=== PATIENT | female | born 1965 | race Caucasian/White ===

== ENCOUNTER 2017-02-05 21:22 | Observation (INO) ==
[2017-02-05] MEDS ORDERED: SALINE FLUSH 10ml SYRINGE IVF PRN (21:27)
[2017-02-05] MEDS ORDERED: DiltiaZEM 25 MG/5 ML INJECTION IVP ONE ×2 (21:28→22:07)
--- OUTSIDE RECORDS SUMMARY | 2017-02-05 21:34 | External Medical Summary ---
:1965 Author Organization [employer] Care Team Providers Name Role Phone Jaqueline Teague Provider Role Unavailable Allergies No Known Allergies Problems Problem Type Condition Code Onset Dates Condition Status Problem Frequency of micturition R35.0 Active Assessment Essential (primary) hypertension I10 Active Problem Essential (primary) hypertension I10 Active Medications Medication Code Code Instructions Start End Status Dosage System Date Date BuPROPion HCl (SR) NDC 50475-67 150 MG Orally 1 tablet 15-01 daily Phentermine HCl NDC 57278-75 37.5 MG Orally 1 tablet 17-01 Once a day Cipro NDC 99060-15 500 MG Orally May 26, Jun 02, 1 tablet 54-01 every 12 hrs 2015 2015 [place] [address]-71 25 MG Orally 1 tablet 56-01 Once a day Procedures Procedure Coding System Code Date COMPLETE CBC W/AUTO DIFF WBC CPT-4 99277 May 28, 2015 LIPID PANEL CPT-4 84485 May 28, 2015 COMPREHENSIVE METABOLIC PANEL CPT-4 92432 May 28, 2015 TSH CPT-4 46701 May 28, 2015 Results No Known Results Summary Purpose eClinicalWorks Submission
--- OUTSIDE RECORDS SUMMARY | 2017-02-05 21:34 | External Medical Summary | Referral Summary ---
:1965 Author Organization [facility] Address [address] [place] [address] Care Team Providers Name Role Phone Ricardo Guerrero Primary Care Physician Encounter VC Date(s): 12/09/15 - 12/09/15 [facility] [address] [place] [address]- [place] Discharge Diagnosis: Carpal tunnel syndrome Discharge Diagnosis: Fibromyalgia Discharge Diagnosis: Rheumatoid factor positive Discharge Disposition: 01-Home or Self Care Attending Physician: Tonia Jensen MD Admitting Physician: Tonia Jensen MD Referring Physician: India Romano PA-C Vital Signs Most recent to oldest [Reference Range]: 1 Temperature Oral [35.8-37.3 degC] 36.9 degC (12/09/15 9:04 AM) Peripheral Pulse Rate [60-100 bpm] 83 bpm (12/09/15 9:04 AM) Respiratory Rate [14-20 br/min] 16 br/min (12/09/15 9:04 AM) Blood Pressure [90-140/60-90 mmHg] 140/85 mmHg (12/09/15 9:04 AM) Problem List Condition Effective Dates Status Health Status Informant Carpal tunnel syndrome(Confirmed) Active Fibromyalgia(Confirmed) Active Rheumatoid factor positive(Confirmed) Active Allergies, Adverse Reactions, Alerts No Known Medication Allergies Medications buPROPion 150 mg/12 hours (SR) oral tablet, extended release 150 mg 1 tabs, Oral, BID, # 180 tabs, 0 Refill(s) Start Date: 12/09/15 Status: Orderedcetirizine 10 mg oral tablet 10 mg 1 tabs, Oral, Daily, # 30 tabs, 0 Refill(s) Start Date: 12/09/15 Status: Orderedflecainide 50 mg oral tablet 50 mg 1 tabs, Oral, q12hr, # 180 tabs, 0 Refill(s) Start Date: 12/09/15 Status: Orderedhydrochlorothiazide 25 mg oral tablet 25 mg 1 tabs, Oral, Daily, # 90 tabs, 0 Refill(s) Start Date: 12/09/15 Status: OrderedPradaxa 150 mg oral capsule 150 mg 1 caps, Oral, BID, # 60 caps, 0 Refill(s) Start Date: 12/09/15 Status: Ordered Results No data available for this section Immunizations No data available for this section Procedures No data available for this section Social History Social History Type Response Smoking Status Never smoker Assessment and Plan Extracted from: Title: Office Visit Note Author: Tonia Jensen MD Date: 12/09/15 Assessment/Plan 1.Rheumatoid factor positive Nonpathological Ordered: Office Visit Level 4 New 96157 2.Fibromyalgia FIBROMYALGIA TREATMENT SUGGESTIONS EXERCISE A daily program is a must. Gradually increase every 1-2-3 weeks from present tolerance, maximum 10% increments. Endpoint 3 miles per day. If setback or illness, restart program 2-3 steps below level at interruption. RX Add medicines one group at a time as tolerated and helpful. Increase slowly, effect usually takes 2-6 weeks per step. TRICYCLICS Take 2-4 hours before bedtime, begin with either group, then add the other when stable. Amitriptyline Nortriptyline Doxepin - Begin with 10 mg., increase doses weekly by 10 mg to 30-50 mg. Trazodone - Gradually increase from 12.5 mg. to max 75 mg. Cyclobenzaprine - Begin with 5-10 mg, increase dose weekly by 5-10 mg, max dose 20 mg. GABAPENTIN Begin with 100 mg at bedtime; increase weekly 100 mg to 400-600 mg. Then begin adding 100 mg, tid with meals, continue increase as tolerated to 800 mg qid. TIZANIDINE Begin with 1 mg at bedtime, gradually increase every 3-7 days through 2, 4, 6 with 8 mg at bedtime. If wake in middle of night, may add a half dose then. When stable begin adding 1 mg tid APART from meals, continue increase as tolerated and helpful to max 24 mg every day. TRAMADOL Begin with 25 mg at bedtime. In 1-2 weeks increase to 100 mg. Then gradually add daytime doses in 50 mg increments to max 300 mg every day. SSRI, etc. Any of the medications here may help. Presently I use mostly Lexapro and Effexor XR. Lowest dose for at least 2 weeks. May be better tolerated either AM or PM. LYRICA Give 2 or 3 times per day. Starting dose 100-150 mg per day. Titrate over 1-2 weeks to max 450 mg per day. Discontinue by titrating to off over 1 week. CYMBALTA Given once per day. Begin with 30 mg. Titrate in 30 mg increments every 1-2 weeks to maximum 120 mg per day. Do not tamper with capsule. SAVELLA Give 12.5 mg per day at start, titrating to maximum of 200 mg per day. Will require a taper if discontinued. Ordered: Office Visit Level 4 New 09351 3.Carpal tunnel syndrome Recommend pursuit ofstatusand cause Ordered: Office Visit Level 4 New 19653
--- OUTSIDE RECORDS SUMMARY | 2017-02-05 21:34 | External Medical Summary ---
:1965 Author Organization [facility] Address [address] [place], [place] [address] Phone [phone] Care Team Providers Name Role Phone Yuridia Pineda Unavailable Unavailable PROBLEMS Type Condition ICD9-CM Code HIX28-IV Code Onset Condition SNOMED Code Dates Status Problem Personal history Z86.718 Active 095821423 of other venous thrombosis and embolism Problem Chronic atrial I48.2 Active 530670807 fibrillation Problem Major depressive F33.1 Active 60541250 disorder, recurrent, moderate Problem Essential I10 Active 24937800 (primary) hypertension ALLERGIES Unknown Allergies SOCIAL HISTORY No smoking Hx information available PLAN OF CARE VITAL SIGNS MEDICATIONS Unknown Medications RESULTS No Results PROCEDURES No Known procedures IMMUNIZATIONS No Known Immunizations
--- OUTSIDE RECORDS SUMMARY | 2017-02-05 21:34 | External Medical Summary ---
:1965 Author Organization eClinicalWorks Care Team Providers Name Role Phone Jaqueline Teague Provider Role Unavailable Allergies, Adverse Reactions, Alerts Substance Reaction Event Type N.K.D.A. Info Not Available Non Drug Allergy Problems Problem Type Condition Code Onset Dates Condition Status Problem Frequency of micturition R35.0 Active Assessment Encounter for general adult medical Z00.00 Active examination without abnormal findings Problem Essential (primary) hypertension I10 Active Assessment Essential (primary) hypertension I10 Active Assessment Frequency of micturition R35.0 Active Medications Medication Code Code Instructions Start End Status Dosage System Date [place] BuPROP[place] ([place] [address]-47 150 MG Orally 1 tablet 15-01 daily Cipro NDC 69822-90 500 MG Orally May 26, Jun 02, 1 tablet 54-01 every 12 hrs 2015 2015 [place] [address]-20 37.5 MG Orally 1 tablet 17-01 [place] [address]-02 25 MG Orally 1 tablet 56-01 Once a day Procedures Procedure Coding System Code Date OFFICE VISIT, [facility] ATTENDANT-LOW COMPLEXITY (20 MIN.) CPT-4 04152 May 26, 2015 URINALYSIS, IN HOUSE CPT-4 98065 May 26, 2015 Vital Signs Date/Time: May 26, 2015 BMI 37.95 Index Height 69 in Weight 257 lbs Respiratory Rate 14 /min Blood Pressure Diastolic 84 mm Hg Blood Pressure Systolic 132 mm Hg Cardiac Monitoring Heart Rate 104 /min Oximetry 97 % Results No Known Results Summary Purpose eClinicalWorks Submission
--- OUTSIDE RECORDS SUMMARY | 2017-02-05 21:34 | External Medical Summary ---
:1965 Author Organization [facility] Address [address], [place] [address] Phone [phone] Care Team Providers Name Role Phone Yuridia Pineda Unavailable Unavailable PROBLEMS Type Condition ICD9-CM Code RPK54-EQ Code Onset Condition SNOMED Code Dates Status Problem Personal history Z86.718 Active 131983962 of other venous thrombosis and embolism Problem Chronic atrial I48.2 Active 518950139 fibrillation Problem Major depressive F33.1 Active 17005586 disorder, recurrent, moderate Problem Essential I10 Active 42212848 (primary) hypertension ALLERGIES Unknown Allergies SOCIAL HISTORY No smoking Hx information available PLAN OF CARE VITAL SIGNS MEDICATIONS Medication Instructions Dosage Frequency Start End Duration Status Date Date Hydrochlorothiazide 25 Orally Once a 1 tablet 24h 90 days Active MG day RESULTS No Results PROCEDURES No Known procedures IMMUNIZATIONS No Known Immunizations
--- OUTSIDE RECORDS SUMMARY | 2017-02-05 21:34 | External Medical Summary ---
:1965 Author Organization [facility] Address [address], [place] [address] Phone [phone] Care Team Providers Name Role Phone Yuridia Pineda Unavailable Unavailable PROBLEMS Type Condition ICD9-CM Code KRZ32-VT Code Onset Condition SNOMED Code Dates Status Problem Personal history Z86.718 Active 377500794 of other venous thrombosis and embolism Problem Chronic atrial I48.2 Active 128099416 fibrillation Problem Major depressive F33.1 Active 53179843 disorder, recurrent, moderate Problem Essential I10 Active 01695537 (primary) hypertension ALLERGIES Substance Reaction Event Type Date Status N.K.D.A. Unknown Non Drug Allergy Dec, Unknown SOCIAL HISTORY No smoking Hx information available PLAN OF CARE Activity Details Follow Up 2 Weeks, prn Reason:null VITAL SIGNS Height 68.5 in 2016-12-29 Weight 274lbs 6oz lbs 2016-12-29 BMI 41.11 kg/m2 2016-12-29 Heart Rate 75 /min 2016-12-29 Temperature 98.1 degrees Fahrenheit 2016-12-29 Blood pressure systolic 124 mm Hg 2016-12-29 Blood pressure diastolic 85 mm Hg 2016-12-29 MEDICATIONS Medication Instructions Dosage Frequency Start End Duration Status Date Date Pradaxa 150 MG Orally Twice a 1 capsule 12h Active day Claritin 10 MG Orally Once a 1 tablet 24h Active day BuPROPion HCl ER (XL) Orally Once a 1 tablet 24h Active 300 MG day in the morning Hydrochlorothiazide 25 Orally daily 1 tablet 24h Active MG Flecainide Acetate 50 Orally twice a 1 tablet Active mg day (bid) RESULTS No Results PROCEDURES Procedure Date Ordered Related Diagnosis Body Site Office Visit, New Pt., Level 3 Dec 29, 2016 IMMUNIZATIONS No Known Immunizations
--- NOTE | 2017-02-05 21:48 | Emergency Department Report ---
Cardiac General HPI - General Stated Complaint: afib Time Seen by Provider: 02/05/17 21:24 Source: patient Mode of arrival: ambulatory Limitations: no limitations - History of Present Illness HPI narrative: Several hours ago, the patient began having rapid pounding heart rate, silver to her atrial fibrillation past. Patient is in chronic recurrent atrial fibrillation, takes flecainide, and is on prophylaxis. However patient does occasionally have episodes of rapid ventricular response, similar to her presentation for new A. fib one year ago. Tonight the patient has taken her routine medications without relief, so she presented to the ER. Pt denies chest pain, shortness of breath, headaches or dizziness, neurologic symptoms, or GI symptoms. - Related Data Home Medications Medication Instructions Recorded Confirmed BuPROPion XL [Wellbutrin Xl] 150 mg PO BID #0 09/14/15 Cetirizine HCl [Zyrtec] 10 mg PO DAILY #0 09/14/15 HydrOXYzine [Atarax] 25 mg PO TID PRN #0 09/14/15 PredniSONE [Deltasone] 30 mg PO WB #0 09/14/15 hydroCHLOROthiazide 25 mg PO WB #0 09/14/15 [Hydrochlorothiazide] Previous Rx's Medication Instructions Recorded Dabigatran Etexilate Mesylate 150 mg PO BID #60 cap 09/16/15 [Pradaxa] Flecainide Acetate 50 mg PO Q12HR 30 Days #0 tab 09/16/15 Allergies Allergy/AdvReac Type Severity Reaction Status Date / Time No Known Allergies Allergy Verified 02/05/17 21:50 Review of Systems All systems: reviewed and negative except as stated PFSH Patient Stated Medical History Cardiac Arrhythmia Yes: a fib Other Hematologic Yes: superficial blood clots Endometriosis Yes Ovarian Cysts Yes Post Menopausal menopausal; LMP 6 months ago Atrial fibrillation hypertension osteoarthritis anxiety, depression - Social History Smoking status: Never smoker Substance use type: does not use Alcohol intake frequency: does not drink Physical Exam - Limitations Limitations: no limitations - General General appearance: alert - Normal Exams: Head:: Normocephalic without trauma Eyes:: Pupils are PERRLA w/ EOMI, No scleral icterus, irritation, or foreign bodies noted ENMT:: No facial trauma, nasal exudates, pharyngeal erythema, or exudates are noted Neck:: Full range of motion, without adenopathy, JVD, bruits or thyromegaly Chest/Respirations:: Clear all munson, with good airflow, and symmetry bilaterally Abdomen:: Bowel sounds positive, soft, non-tender, non-distended, no hepatosplenomegaly, masses or bruits noted Lymphatic:: No lymphadenopathy, or lymphedema noted Musculoskeletal:: No tenderness, or deformity noted, good range of motion, all extremities Integumentary:: No rashes, hives, or bruising noted, hair and nails, without abnormality Neurological:: Patient is alert, and oriented, cranial nerves, motor/sensory/ cerebellar, exams w/o gross deficits, to observation Psychiatric:: Patient exhibits, appropriate attention, emotion and affect - Chest Chest inspection: Present: normal inspection, symmetric chest wall rise. Absent : tenderness - Cardiovascular Cardiovascular exam: Present: tachycardia (irregularly irregular tachycardia), irregular rhythm, normal heart sounds. Absent: diastolic murmur, rubs, gallop, clicks, JVD Course Vital Signs Temperature 98.2 F 02/05/17 21:24 Pulse Rate 148 H 02/05/17 21:24 Respiratory Rate 16 02/05/17 21:24 Blood Pressure 133/98 H 02/05/17 21:24 Pulse Oximetry 99 02/05/17 21:24 Temperature 98.2 F 02/05/17 21:24 Pulse Rate 129 H 02/05/17 22:00 Respiratory Rate 20 02/05/17 22:00 Blood Pressure 134/63 02/05/17 22:00 Pulse Oximetry 97 02/05/17 22:00 Cardiac General - MDM Narrative Medical decision making narrative: EKG shows atrial fibrillation with RVR, no other ischemia or ectopy is seen, no STEMI Patient given Cardizem 20 mg IV - initially patient had good response, however within the hour patient's heart rate began elevating again in the 120s to 130s. Patient given an additional 15 mg Cardizem and 1 L normal saline IV fluid bolus - patient has had no significant improvement CBC - n CMP - n Troponin -n Patient started a Cardizem drip, beginning at 5 mg per hour and titrating up. Patient discussed with Dr. Godoy, will admit to CCU - Lab Data Result diagrams: 02/05/17 21:43 02/05/17 21:43 Lab Results 02/05/17 02/05/17 Range/Units 21:43 21:43 WBC 13.1 H (4.5-11.0) T/MM3 RBC 5.55 H (4.00-5.20) M/MM3 Hgb 15.2 (12-16) GM/DL Hct 45.4 (36-46) % MCV 81.8 (80-100) UM3 MCH 27.4 (26-34) UUG MCHC 33.5 (31-37) GM/DL RDW Std Deviation 39.8 (36.9-50.2) FL Plt Count 279 (130-400) T/MM3 MPV 9.6 (9.4-12.4) UM3 Immature Gran % (Auto) 0.2 (0.0-0.5) % Neut % (Auto) 50.7 (33-66) % Lymph % (Auto) 38.1 (23-45) % [place] % (Auto) 8.2 (0-9.0) % Eos % (Auto) 2.6 (0-4) % Baso % (Auto) 0.2 (0-2) % Neut # 6.6 (1.8-7.7) T/MM3 Lymph # 5.0 H (1-4.8) T/MM3 [place] # 1.1 H (0-0.8) T/MM3 Eos # 0.3 (0-0.5) T/MM3 Baso # 0.0 (0-0.2) T/MM3 Abs Immat Gran (auto) 0.03 (0.00-0.03) T/MM3 Turbidity < 20 (0-20) Sodium 148 H (134-144) MEQ/L Potassium 5.2 H (3.6-5) MEQ/L Chloride 110 H (98-107) MEQ/L Carbon Dioxide 26 (22-30) MEQ/L Anion Gap 12 (5-15) MEQ/L BUN 23.0 H (7-17) MG/DL Creatinine 0.8 (0.7-1.2) MG/DL GFR Calculation 76 BUN/Creatinine Ratio 29 H (6-26) RATIO Glucose 89 (65-110) MG/DL Calculated Osmolality 287 H (261-280) MOSM/KG Calcium 9.5 (8.4-10.2) MG/DL Total Bilirubin 0.40 (0.20-1.30) MG/DL Conjugated Bilirubin 0.00 (0.00-0.30) MG/DL Unconjugated Bilirubin 0.10 (0.00-11.10) MG/DL Icterus Index < 2 (0-7) AST 33 (14-36) U/L ALT 46 (9-52) U/L Alkaline Phosphatase 114 (38-126) U/L Troponin I 0.048 (0-0.12) ng/ml Total Protein 9.0 H (6.3-8.2) G/DL Albumin 4.7 (3.5-5.0) G/DL Globulin 4.3 H (2.4-3.6) G/DL Albumin/Globulin Ratio 1.1 (1.1-2.2) RATIO Specimen Hemolysis 55 H (0-25) Critical Care Time Critical Care Time: Yes Total Critical Care Time: 45 Attestation: She required multiple doses of antidysrhythmic agents for tachycardia dysrhythmia Disposition Clinical Impression: Atrial fibrillation with RVR Disposition: 02 To [facility] [place] Acute Care Condition: Improved Prescriptions: No Action BuPROPion XL [Wellbutrin Xl] 150 mg PO BID #0 hydroCHLOROthiazide [Hydrochlorothiazide] 25 mg PO WB #0 HydrOXYzine [Atarax] 25 mg PO TID PRN #0 PRN Reason: ANXIETY Flecainide Acetate 50 mg PO Q12HR 30 Days #0 tab Cetirizine HCl [Zyrtec] 10 mg PO DAILY #0 PredniSONE [Deltasone] 30 mg PO WB #0 Dabigatran Etexilate Mesylate [Pradaxa] 150 mg PO BID #60 cap - Seen By: physician
[2017-02-05] MEDS ORDERED: NS 1,000 ML IV ONE (22:07)
[2017-02-05] MEDS ORDERED: DiltiaZEM Drip 125 MG in NS 125 ML IV SCH (22:45)
[2017-02-05 23:29] VITALS: BMI 42.5
[2017-02-06] MEDS ORDERED: ONDANSETRON 4 MG/2 ML INJECTION IVP PRN (00:08)
[2017-02-06] MEDS ORDERED: ACETAMINOPHEN 325 MG TABLET PO PRN (00:08)
[2017-02-06] MEDS ORDERED: DiltiaZEM Drip 125 MG in NS 125 ML IV PRN (09:30)
--- NOTE | 2017-02-06 11:33 | Cardiology History & Physical ---
History of Present Illness HPI: Rashmi is a 51 year old female who is known to Dr. Jones with a history of paroxysmal atrial fibrillation and hypertension who began having rapid pounding heart rate, similar to her atrial fibrillation past. She takes flecainide, and is on Pradaxa for anticoagulation to prevent stroke. She occasionally has episodes of rapid ventricular response, similar to her presentation for new A. fib one year ago. Last night she took her routine medications without relief, so she presented to the ED. She denied chest pain, shortness of breath, headaches or dizziness, neurologic symptoms, or GI symptoms. Review of Systems - Constitutional Constitutional: Absent: chills, fever(s) - EENMT Eyes: Absent: change in vision Balance: Absent: vertigo Mouth/Throat: Absent: sore throat - Cardiovascular Cardiovascular: Present: palpitations. Absent: chest pain, syncope, dyspnea on exertion Vascular: Absent: pedal edema - Respiratory Respiratory: Absent: cough, dyspnea - Gastrointestinal Gastrointestinal: Absent: diarrhea, nausea, vomiting - Genitourinary Genitourinary: Absent: dysuria - Integumentary/Breasts Integumentary: Absent: rash - Neurological Neurological: Absent: dizziness - Endocrine Endocrine: Present: palpitations PFSH Patient Stated Medical History Cardiac Arrhythmia Yes: a fib Other Hematologic Yes: superficial blood clots Endometriosis Yes Ovarian Cysts Yes Post Menopausal menopausal; LMP 6 months ago Surgical History: hysteroscopy Family History: Maternal grandfather -[place] - Social History Smoking status: Never smoker Substance use type: does not use Alcohol intake frequency: does not drink Household members: none Current occupational status: employed Current residence: Apartment/Private Home Medications Home Medications Medication Instructions Recorded Confirmed Type Cetirizine HCl [Zyrtec] 10 mg PO DAILY #0 09/14/15 02/05/17 History hydroCHLOROthiazide 25 mg PO WB #0 09/14/15 02/05/17 History [Hydrochlorothiazide] Allergies Allergy/AdvReac Type Severity Reaction Status Date / Time No Known Allergies Allergy Verified 02/05/17 21:50 Exam Vital signs: Temperature 97.8 F 02/06/17 07:45 Pulse Rate 103 H 02/06/17 09:15 Respiratory Rate 17 02/06/17 09:15 Blood Pressure 142/95 H 02/06/17 09:15 Pulse Oximetry 97 02/06/17 09:15 - Constitutional no acute distress, well nourished, cooperative - Routine HEENT Exam Head: Present: normocephalic ENT: Present: mucous membranes moist - Routine Neck Exam Absent: JVD, carotid bruit - Routine Chest/Breast/Axilla Exam Chest wall: Absent: tenderness - Routine Respiratory Exam Present: CTA bilaterally. Absent: rales, wheezes - Routine Cardiovascular Exam Present: no murmur, tachycardia, irregular rhythm. Absent: JVD - Routine Abdominal Exam Present: soft, normoactive bowel sounds - Routine Extremities Exam Present: no edema - Routine Skin Exam Present: intact, dry, warm - Routine Neurological Exam Present: alert, oriented X3 - Routine Psychiatric Exam Present: normal affect, normal thought process Results 02/07/17 04:53 02/07/17 04:53 Cardiac Enzymes 02/06/17 Range/Units 05:05 Troponin I 0.015 D (0-0.12) ng/ml CBC 02/06/17 Range/Units 05:05 WBC 9.7 (4.5-11.0) T/MM3 RBC 4.68 (4.00-5.20) M/MM3 Hgb 12.9 D (12-16) GM/DL Hct 39.2 D (36-46) % Plt Count 282 (130-400) T/MM3 Neut # 5.1 (1.8-7.7) T/MM3 Lymph # 3.6 (1-4.8) T/MM3 [place] # 0.8 (0-0.8) T/MM3 Eos # 0.2 (0-0.5) T/MM3 Baso # 0.0 (0-0.2) T/MM3 Comprehensive Metabolic Panel 02/06/17 Range/Units 05:05 Sodium 148 H (134-144) MEQ/L Potassium 3.9 D (3.6-5) MEQ/L Chloride 113 H (98-107) MEQ/L Carbon Dioxide 26 (22-30) MEQ/L BUN 18.0 H (7-17) MG/DL Creatinine 0.7 (0.7-1.2) MG/DL Glucose 100 (65-110) MG/DL Calcium 8.3 L D (8.4-10.2) MG/DL Intake and Output 02/05/17 02/06/17 02/06/17 22:59 06:59 14:59 Intake Total 1178.083 / 1178.083 28.417 / 28.417 Output Total 500 / 500 Balance 1178.083 / 1178.083 -471.583 / -471.583 Intake: IV 1078.083 / 1078.083 28.417 / 28.417 Cardizem IV 125 MG In 78.083 / 78.083 28.417 / 28.417 Normal Saline 125 ml @ 0 mls/hr IV PRN PRN Rx#: [id number] Normal Saline 1,000 ml @ 1000 / 1000 999.9 mls/hr IV .Q1H ONE Rx#:[id number] Oral 100 / 100 Output: Urine 500 / 500 Other: Urine Appearance Clear Clear Urine Color Yellow Yellow # Voids 1 Weight 279 lb 5.211 oz 282 lb 6.594 oz Patient Weight 02/07/17 06:59 Weight 282 lb 6.594 oz - Imaging and Cardiology Echo: pending EKG results: image reviewed Imaging & Cardiology Narrative: Date of Exam: 02/06/17 Ordering Provider: Mery Garcia APRN Type of Exam(s): XR chest 1V Reason for Exam(s): afib Indication: afib; new onset atrial fibrillation PROCEDURE: XR chest 1V: Encounter: Initial Comparison: 09/14/2015 Findings: Heart size is normal. The lungs are clear. There is no focal opacity to suggest atelectasis or pneumonia. No mediastinal or hilar adenopathy. No pleural effusion. There is no significant tortuosity of the descending thoracic aorta. There is no significant degenerative changes of the thoracic spine. IMPRESSION: No acute process. EKG interpretations - EKG EKG shows: atrial fibrillation (with RVR) - Blocks, axis, hypertrophy, ST abn Repolarization changes or abnormalities: nonspecific abnormality, ST segment, and/or T wave Hospital Course This is a general summary of the patient's hospital course. For more details refer to the complete medical record. Time spent with patient: 25 - 35 minutes DVT Prophylaxis: Pradaxa Assessment and Plan - Attestation Attestation Narrative: 02/07/17 12:58 Recommendation After examining the patient I agree with the above assessment. I am involved in the formulation of the patient's plan of care. - Assessment and Plan (1) Atrial fibrillation with RVR Current visit: Yes Status: Acute Cardizem drip at 10mg/H now. NPO for DCCV today. Discussed option of Ablation with patient if Dr. Jones feels she is a candidate. Converted to SR, start Sotalol 40mg po BID and monitor cardiac telemetry. Repeat EKG in the morning. (2) Essential (primary) hypertension Current visit: Yes Status: Acute Continue Hydrochlorthiazide
--- NOTE | 2017-02-06 12:29 | XRay Report ---
Indication: afib; new onset atrial fibrillation PROCEDURE: XR chest 1V: Encounter: Initial Comparison: 09/14/2015 Findings: Heart size is normal. The lungs are clear. There is no focal opacity to suggest atelectasis or pneumonia. No mediastinal or hilar adenopathy. No pleural effusion. There is no significant tortuosity of the descending thoracic aorta. There is no significant degenerative changes of the thoracic spine. IMPRESSION: No acute process. .
[2017-02-06] MEDS: CETIRIZINE 10 MG TABLET PO SCH (12:30)
[2017-02-06] MEDS ORDERED: FentaNYL 100 MCG/2 ML INJECTION IVP ONE (13:00)
[2017-02-06] MEDS ORDERED: MIDAZOLAM 2mg/2ml INJECTION IVP ONE (13:00)
[2017-02-06] MEDS: SOTALOL 80 MG TABLET PO SCH (17:11)
[2017-02-07 06:07] VITALS: O2SAT 97
[2017-02-07] MEDS: SOTALOL 80 MG TABLET PO SCH (07:02)
[2017-02-07] MEDS: CETIRIZINE 10 MG TABLET PO SCH (08:16)
--- NOTE | 2017-02-07 08:18 | Echocardiogram ---
DATE OF PROCEDURE February 06, 2017 This is a two-dimensional echo with spectral Doppler, color-flow and M-mode. It was obtained in a patient with atrial fibrillation. Left atrium is dilated. Left ventricle end-diastolic dimension is normal. Left ventricle wall thickness increased. LV systolic function is normal with ejection fraction of about 58%. Right atrium is normal. Right ventricle is normal. Aortic root dimension is normal. Mitral valve is morphologically normal with mild mitral regurgitation. Aortic valve appears to be normal. Tricuspid valve shows mild tricuspid regurgitation with estimated pulmonary artery systolic pressure of 34. Pulmonary valve shows no pulmonary insufficiency. There is no pericardial effusion. IMPRESSION 1. Normal LV systolic function with ejection fraction of 58%. 2. Left atrial dilation. 3. Left ventricular hypertrophy. 4. Mild mitral regurgitation. 5. Mild tricuspid regurgitation with estimated pulmonary artery systolic pressure of 34. MTDD
--- NOTE | 2017-02-07 08:30 | DC Cardioversion ---
DATE OF PROCEDURE February 06, 2017 The patient is a pleasant 51-year-old lady who was admitted with atrial fibrillation with history of atrial fibrillation on chronic anticoagulation and antiarrhythmics and was referred for DC cardioversion. Informed consent was obtained after explaining the procedure and the potential risks to the patient who agreed to proceed with the procedure. PROCEDURE DC cardioversion. Conscious sedation was performed using Versed and fentanyl. Anterior-posterior Zoll pads were applied. 360 joules of energy was delivered in synchronized manner and patient converted from atrial fibrillation to sinus rhythm. She tolerated the procedure well with no complications. IMPRESSION Successful DC cardioversion of atrial fibrillation to sinus rhythm. PLAN Will continue chronic anticoagulation and change antiarrhythmics to see if we can keep her in sinus. One might consider referral to ablation in future. STEPHEN
--- NOTE | 2017-02-07 10:52 | Discharge Summary ---
<Mery Garcia - Last Filed: 02/07/17 10:48> Discharge Information Date of admission: 02/05/17 23:04 Anticipated date of discharge: 02/07/17 Attending Physician: Joseph Jones MD - Discharge Diagnosis (1) Atrial fibrillation with RVR Status: Acute (2) Essential (primary) hypertension Status: Acute - Procedures Procedures: DATE OF PROCEDURE February 06, 2017 The patient is a pleasant 51-year-old lady who was admitted with atrial fibrillation with history of atrial fibrillation on chronic anticoagulation and antiarrhythmics and was referred for DC cardioversion. Informed consent was obtained after explaining the procedure and the potential risks to the patient who agreed to proceed with the procedure. PROCEDURE DC cardioversion. Conscious sedation was performed using Versed and fentanyl. Anterior-posterior Zoll pads were applied. 360 joules of energy was delivered in synchronized manner and patient converted from atrial fibrillation to sinus rhythm. She tolerated the procedure well with no complications. IMPRESSION Successful DC cardioversion of atrial fibrillation to sinus rhythm. PLAN Will continue chronic anticoagulation and change antiarrhythmics to see if we can keep her in sinus. One might consider referral to ablation in future. - Laboratory Labs: 02/07/17 04:53 02/07/17 04:53 Laboratory Results - last 48 hr 02/05/17 02/05/17 02/06/17 21:43 21:43 05:05 WBC 13.1 H 9.7 RBC 5.55 H 4.68 Hgb 15.2 12.9 D Hct 45.4 39.2 D MCV 81.8 83.8 MCH 27.4 27.6 MCHC 33.5 32.9 RDW Std Deviation 39.8 41.0 Plt Count 279 282 MPV 9.6 9.8 Immature Gran % (Auto) 0.2 0.2 Neut % (Auto) 50.7 52.0 Lymph % (Auto) 38.1 37.0 [place] % (Auto) 8.2 8.2 Eos % (Auto) 2.6 2.4 Baso % (Auto) 0.2 0.2 Neut # 6.6 5.1 Lymph # 5.0 H 3.6 [place] # 1.1 H 0.8 Eos # 0.3 0.2 Baso # 0.0 0.0 Abs Immat Gran (auto) 0.03 0.02 Turbidity < 20 Sodium 148 H Potassium 5.2 H Chloride 110 H Carbon Dioxide 26 Anion Gap 12 BUN 23.0 H Creatinine 0.8 GFR Calculation 76 BUN/Creatinine Ratio 29 H Glucose 89 Calculated Osmolality 287 H Calcium 9.5 Magnesium Total Bilirubin 0.40 Conjugated Bilirubin 0.00 Unconjugated Bilirubin 0.10 Icterus Index < 2 AST 33 ALT 46 Alkaline Phosphatase 114 Troponin I 0.048 Total Protein 9.0 H Albumin 4.7 Globulin 4.3 H Albumin/Globulin Ratio 1.1 TSH Specimen Hemolysis 55 H 02/06/17 02/06/17 02/07/17 05:05 12:26 04:53 WBC 7.8 RBC 4.82 Hgb 13.5 Hct 40.5 MCV 84.0 MCH 28.0 MCHC 33.3 RDW Std Deviation 40.8 Plt Count 270 MPV 9.6 Immature Gran % (Auto) Neut % (Auto) Lymph % (Auto) [place] % (Auto) Eos % (Auto) Baso % (Auto) Neut # Lymph # [place] # Eos # Baso # Abs Immat Gran (auto) Turbidity < 20 Sodium 148 H Potassium 3.9 D Chloride 113 H Carbon Dioxide 26 Anion Gap 9 BUN 18.0 H Creatinine 0.7 GFR Calculation 89 BUN/Creatinine Ratio 26 Glucose 100 Calculated Osmolality 286 H Calcium 8.3 L D Magnesium 2.0 Total Bilirubin Conjugated Bilirubin Unconjugated Bilirubin Icterus Index < 2 AST ALT Alkaline Phosphatase Troponin I 0.015 D < 0.012 Total Protein Albumin Globulin Albumin/Globulin Ratio TSH 9.65 H Specimen Hemolysis < 15 < 15 02/07/17 04:53 WBC RBC Hgb Hct MCV MCH MCHC RDW Std Deviation Plt Count MPV Immature Gran % (Auto) Neut % (Auto) Lymph % (Auto) [place] % (Auto) Eos % (Auto) Baso % (Auto) Neut # Lymph # [place] # Eos # Baso # Abs Immat Gran (auto) Turbidity < 20 Sodium 144 Potassium 4.0 Chloride 109 H Carbon Dioxide 26 Anion Gap 9 BUN 18.0 H Creatinine 0.8 GFR Calculation 76 BUN/Creatinine Ratio 23 Glucose 110 Calculated Osmolality 280 Calcium 9.0 D Magnesium 2.0 Total Bilirubin Conjugated Bilirubin Unconjugated Bilirubin Icterus Index < 2 AST ALT Alkaline Phosphatase Troponin I Total Protein Albumin Globulin Albumin/Globulin Ratio TSH Specimen Hemolysis < 15 Acetaminophen (Tylenol) 325 - 650 mg PO Q5H PRN PRN Reason: Discomfort Cetirizine HCl (Zyrtec) 10 mg PO DAILY [facility] Last Admin: 02/07/17 08:16 Dose: 10 mg Dabigatran (Pradaxa) 150 mg PO BID [facility] Last Admin: 02/07/17 08:10 Dose: 150 mg Hydrochlorothiazide (Hydrodiuril) 25 mg PO WB [facility] Last Admin: 02/07/17 08:10 Dose: 25 mg Ondansetron HCl (Zofran) 4 mg IVP Q6H PRN PRN Reason: Nausea &/or vomiting Sodium Chloride (Iv Flush) 10 - 80 ml IVF PRN PRN PRN Reason: Flushing Last Admin: 02/05/17 21:40 Dose: 4 ml Sotalol HCl (Betapace) 40 mg PO ACBID [facility] Last Admin: 02/07/17 07:02 Dose: 40 mg - Radiology Radiology: Date of Exam: 02/06/17 Ordering Provider: Mery Garcia APRN Type of Exam(s): XR chest 1V Reason for Exam(s): afib Indication: afib; new onset atrial fibrillation PROCEDURE: XR chest 1V: Encounter: Initial Comparison: 09/14/2015 Findings: Heart size is normal. The lungs are clear. There is no focal opacity to suggest atelectasis or pneumonia. No mediastinal or hilar adenopathy. No pleural effusion. There is no significant tortuosity of the descending thoracic aorta. There is no significant degenerative changes of the thoracic spine. IMPRESSION: No acute process. History of Present Illness HPI: Rashmi is a 51 year old female who is known to Dr. Jones with a history of paroxysmal atrial fibrillation and hypertension who began having rapid pounding heart rate, similar to her atrial fibrillation past. She takes flecainide, and is on Pradaxa for anticoagulation to prevent stroke. She occasionally has episodes of rapid ventricular response, similar to her presentation for new A. fib one year ago. Last night she took her routine medications without relief, so she presented to the ED. She denied chest pain, shortness of breath, headaches or dizziness, neurologic symptoms, or GI symptoms. Hospital Course This is a general summary of the patient's hospital course. For more details refer to the complete medical record. Time spent with patient: 25 - 35 minutes DVT Prophylaxis: Pradaxa Exam Vital signs: Temperature 98.3 F 02/06/17 16:00 Pulse Rate 80 02/07/17 08:00 Respiratory Rate 16 02/07/17 06:00 Blood Pressure 126/74 02/07/17 06:00 Pulse Oximetry 97 02/07/17 06:00 - Constitutional no acute distress, well nourished, well developed, cooperative - Routine HEENT Exam Head: Present: normocephalic ENT: Present: mucous membranes moist - Routine Neck Exam Absent: carotid bruit - Routine Chest/Breast/Axilla Exam Chest wall: Absent: tenderness - Routine Respiratory Exam Present: CTA bilaterally. Absent: rales, wheezes - Routine Cardiovascular Exam Present: RRR, no murmur. Absent: JVD - Routine Abdominal Exam Present: soft, normoactive bowel sounds - Routine Extremities Exam Present: no edema - Routine Skin Exam Present: intact, dry, warm - Routine Neurological Exam Present: alert, oriented X3 - Routine Psychiatric Exam Present: normal affect, normal thought process Results 02/07/17 04:53 02/07/17 04:53 Cardiac Enzymes 02/06/17 Range/Units 12:26 Troponin I < 0.012 (0-0.12) ng/ml CBC 02/07/17 Range/Units 04:53 WBC 7.8 (4.5-11.0) T/MM3 RBC 4.82 (4.00-5.20) M/MM3 Hgb 13.5 (12-16) GM/DL Hct 40.5 (36-46) % Plt Count 270 (130-400) T/MM3 Comprehensive Metabolic Panel 02/07/17 Range/Units 04:53 Sodium 144 (134-144) MEQ/L Potassium 4.0 (3.6-5) MEQ/L Chloride 109 H (98-107) MEQ/L Carbon Dioxide 26 (22-30) MEQ/L BUN 18.0 H (7-17) MG/DL Creatinine 0.8 (0.7-1.2) MG/DL Glucose 110 (65-110) MG/DL Calcium 9.0 D (8.4-10.2) MG/DL Intake and Output 02/06/17 02/07/17 02/07/17 22:59 06:59 14:59 Intake Total 680 / 680 360 / 360 Output Total 400 / 400 500 / 500 Balance 280 / 280 -140 / -140 Intake: IV 20 / 20 Cardizem IV 125 MG In 20 / 20 Normal Saline 125 ml @ 0 mls/hr IV PRN PRN Rx#: [id number] Oral 660 / 660 360 / 360 Output: Urine 400 / 400 500 / 500 Other: Urine Appearance Clear Clear Clear Urine Color Yellow Yellow Yellow Urine Odor Strong # Voids 1 Weight 278 lb 3.574 oz Patient Weight 02/08/17 06:59 Weight 278 lb 3.574 oz - Imaging and Cardiology Echo: report reviewed EKG results: image reviewed - EKG Interpretation EKG: sinus rhythm Discharge Plan - Med Rec/Dispo Referrals/Follow Up: Joseph Jones MD [Physician] - 02/21/17 2:20 pm [place] Instructions: Cardioversion (DC) Prescriptions: New Sotalol [Betapace] 40 mg PO ACBID #30 tab Continue hydroCHLOROthiazide [Hydrochlorothiazide] 25 mg PO WB #0 Cetirizine HCl [Zyrtec] 10 mg PO DAILY #0 Dabigatran Etexilate Mesylate [Pradaxa] 150 mg PO BID #60 cap Discontinued Flecainide Acetate 50 mg PO Q12HR 30 Days #0 tab - Disposition 01 Discharged Home, Self-Care <Joseph Jones - Last Filed: 02/14/17 13:53> Discharge Information Date of admission: 02/05/17 23:04 Attending Physician: Joseph Jones MD - Discharge Diagnosis (1) Atrial fibrillation with RVR Status: Acute (2) Essential (primary) hypertension Status: Acute - Laboratory Labs: 02/07/17 04:53 02/07/17 04:53 Hospital Course This is a general summary of the patient's hospital course. For more details refer to the complete medical record. Exam Vital signs: Temperature 97.9 F 02/07/17 11:29 Pulse Rate 80 02/07/17 14:00 Respiratory Rate 23 02/07/17 14:00 Blood Pressure 139/73 02/07/17 14:00 Pulse Oximetry 97 02/07/17 14:00 Results 02/07/17 04:53 02/07/17 04:53 Discharge Plan - Med Rec/Dispo - Attestation Attestation Narrative: 02/14/17 13:53 Recommendation After examining the patient I agree with the above assessment. I am involved in the formulation of the patient's plan of care.
--- NOTE | 2017-02-07 11:06 | Work/School Release ---
Work/School Release - Date Date: 02/07/17 - Work Release Excused for:: recent illness May return to work on:: 02/08/17 Restrictions:: none May resume normal activity on:: 02/08/17
[2017-02-07 11:30] VITALS: TEMP 97.9
[2017-02-07 15:19] VITALS: BP 139/73; PULSE 80; RESP 23
== END 2017-02-07 15:15 | disposition home or self-care (01) ==
LOC: ED 21:22 → CCU 21:22
PROVIDERS: ADMIT Internal Medicine Cardiovascular Disease; ATTEND Internal Medicine Cardiovascular Disease